=== PATIENT | male | born 1955 | race Caucasian/White ===

== ENCOUNTER → 2017-04-22 | Day surgery (SDC) | payer BC ==
[2017-04-20 16:59] LABS: BASOPHILS # (AUTO) 0.1 (0.0-0.1); BASOPHILS % 1.4 % (0.0-1.0); EOSINOPHILS # (AUTO) 0.2 (0.0-0.4); EOSINOPHILS % 2.9 % (0.0-6.0); HEMATOCRIT 46.9 % (38.2-49.6); HEMOGLOBIN 16.2 g/dL (14.0-18.0); LYMPHOCYTES # (AUTO) 1.2 (1.0-3.2); LYMPHOCYTES % 18.5 % (18.0-39.1); MEAN CORPUSCULAR HEMOGLOBIN 30.5 pg (28-32); MEAN CORPUSCULAR HGB CONC 34.5 g/dL (31-35); MEAN CORPUSCULAR VOLUME 88.2 fL (81-99); MONOCYTES # (AUTO) 0.6 (0.2-0.8); MONOCYTES % 9.4 % (4.4-11.3); NEUTROPHILS # (AUTO) 4.5 (2.1-6.9); NEUTROPHILS % 67.5 % (38.7-80.0); PLATELET COUNT 220 x10e3/uL (140-360); RED BLOOD COUNT 5.32 x10e6/uL (4.3-5.7); RED CELL DISTRIBUTION WIDTH 13.2 % (11.7-14.4)
[2017-04-20 17:14] LABS: ANION GAP 13.1 mmol/L (8-16); BLOOD UREA NITROGEN 21 mg/dL (7-26); BUN/CREATININE RATIO 20 (6-25); CALCIUM 8.9 mg/dL (8.4-10.2); CARBON DIOXIDE 24 mmol/L (22-29); CHLORIDE 110 mmol/L (98-107); CREATININE, SERUM 1.04 mg/dL (0.72-1.25); EST GLOMERULAR FILTRATION RATE > 60 ML/MIN (60-); GLUCOSE 97 mg/dL (74-118); POTASSIUM 4.1 mmol/L (3.5-5.1); SODIUM 143 mmol/L (136-145)
--- NOTE | 2017-04-20 18:52 | Diagnostic Imaging Report ---
PROCEDURE: X-RAY CHEST, TWO VIEWS COMPARISON: None. INDICATIONS: PRE OP SHOULDER FINDINGS: LUNGS: Mild eventration of the right diaphragm. No soft tissue mass or infiltrate. Vascular markings are normal. Calcification superimposed over the left fourth rib measures 5 mm. PLEURA: No effusions or pneumothorax. HEART \T\ MEDIASTINUM: Mild cardiomegaly with cardiac bypass changes. No hilar lymphadenopathy. BONES \T\ SOFT TISSUES: Median sternotomy wires are intact. No lytic lesions. CONCLUSION: No acute thoracic abnormality. Bone island or calcified granuloma in the left upper lobe as described above. Mild eventration of the right diaphragm. Dictated by: Robbie Jimenez M.D. on 04/20/2017 at 18:52 Electronically approved by: Robbie Jimenez M.D. on 04/20/2017 at 18:52
[~2017-04-22] MED LIST: ACETAMINOPHEN 1000 MG/100 ML 100 ML IV ONE; ACETAMINOPHEN 1000 MG/100 ML IV ONE; AMLODIPINE BESYL5 MG PO; ATORVASTATIN CA20 MG PO; CEFAZOLIN SOD 2 GM/D5W 50ML 50 ML IV ONE; CLOBETASOL1 EA/15 GM; CLOPIDOGREL75 MG PO; DEXAMETHASONE SOD PHOS INJ 4 MG/ML VIAL ONE; EPHEDRINE SULFATE INJ 50 MG/10 ML SYR ONE; FENTANYL CITRATE/PF 100MCG/2 ML INJ ONE; HYDROCODONE/APAP 5MG-325MG TAB ONE; KETOROLAC TROMETHAMINE 30 MG/ML VIAL ONE; LEVOTHYROXINE112 MCG PO; LEXAPRO10 MG PO; LIDOCAINE HCL 2% LOCAL INJ 5 ML SDV VIAL INJ ONE; MIDAZOLAM HCL 2 MG/2 ML VIAL ONE; NAPROXEN250 MG PO; ONDANSETRON HCL INJ 2 MG/ML VIAL ONE; PROPOFOL IV EMULSION 10 MG/ML 20 ML VIAL ONE; ROCURONIUM BROMIDE 10 MG/ML 5ML VIAL ONE; ROPIVACAINE 0.5% 5 MG/ML 30 ML SDV ONE; SEVOFLURANE INHAL SOLN 250 ML PEN BTL ONE; SPIRONOLACTONE25 MG PO; ULTRAM50 MG PO; VASCEPA
--- OUTSIDE RECORDS SUMMARY | 2017-04-22 08:54 | XMS REPORT ---
Author Author [facility] Address Unknown Phone Unavailable Care Team Providers Care Metal Machinist Name Role Phone JAILYN DEL RIO Unavailable Unavailable Problems This patient has no known problems. Allergies, Adverse Reactions, Alerts This patient has no known allergies or adverse reactions. Medications This patient has no known medications. Results Test Description Test Time Test Comments Text Results Atomic Results Result Comments CHEST 2 VIEWS [place] [address] Patient Name: YARY SHARMA MR #: [id number] : 1955 Age/Sex: 61/M Req #: [id number] Adm Physician: Ordered by: MARGUERITE JARA MD Report #: [id number] Location: OR Room/Bed: Procedure: [id number] DX/CHEST 2 VIEWS Exam Date: 04/20/17 Exam Time : 1640 REPORT STATUS: Signed PROCEDURE: X-RAY CHEST, TWO VIEWS COMPARISON: None. INDICATIONS: PRE OP SHOULDER FINDINGS: LUNGS: Mild eventration of the right diaphragm. No soft tissue mass or infiltrate. Vascular markings are normal. Calcification superimposed over the left fourth rib measures 5 mm. PLEURA: No effusions or pneumothorax. HEART T MEDIASTINUM: Mild cardiomegaly with cardiac bypass changes. No hilar lymphadenopathy. BONES T SOFT TISSUES: Median sternotomy wires are intact. No lytic lesions. CONCLUSION: No acute thoracic abnormality. Bone island or calcified granuloma in the left upper lobe as described above. Mild eventration of the right diaphragm. Dictated by: Karly Jimenez M.D. on 04/20/2017 at 18:52 Electronically approved by: Karly Jimenez M.D. on 04/20/2017 at 18:52 Dictated By: KARLY JIMENEZ MD 51 Transcribed By: GAY on 04/20/171851 COPY TO: MARGUERITE JARA MD
--- NOTE | 2017-04-23 09:44 | Operative Report ---
DATE OF PROCEDURE: April 22, 2017 PREOPERATIVE DIAGNOSES 1. Left shoulder rotator cuff tear. 2. Left shoulder acromioclavicular joint arthrosis. POSTOPERATIVE DIAGNOSES 1. Left shoulder complex and chronic rotator cuff tear. 2. Left shoulder synovitis. 3. Left shoulder acromioclavicular joint arthrosis. OPERATIONS/PROCEDURES PERFORMED 1. The patient underwent a left shoulder examination under anesthesia. 2. Left shoulder arthroscopy. 3. Left shoulder debridement of synovitis. 4. Left shoulder arthroscopic repair of a complex rotator cuff tear. 5. Left shoulder arthroscopic subacromial decompression and acromioplasty. 6. Left shoulder arthroscopic distal clavicle resection. GAS EXAMINER: Willa Young. ANESTHESIA: General endotracheal intubation anesthesia, as well as the regional block. IV FLUIDS: Per the anesthesia record. COMPLICATIONS: None. BRIEF DESCRIPTION OF THE PATIENT'S OPERATIVE PROCEDURE: Mr. Ferguson was taken to the operating room and placed in the supine position on the operating table. Following induction of general anesthesia, as well as endotracheal intubation, the patient's left shoulder was examined under anesthesia. He was found to have full passive range of motion of the shoulder joint and no otherwise gross abnormalities. There was no evidence of instability. The patient's upper extremity was prepped and draped in a standard surgical fashion. Standard posterolateral and anterior portals were created without difficulty. The scope was placed within the shoulder joint atraumatically. Examination of the glenohumeral articulation demonstrated no significant evidence of chondromalacia. There were no loose bodies in the shoulder joint. There was diffuse synovitis in the shoulder joint. A probe was placed in the shoulder, and the biceps tendon was found to be contained within the shoulder and attached firmly to the glenoid labrum. The labrum was also firmly attached to the glenoid. A shaver was placed in the shoulder joint and synovitis was debrided. Evaluation of the rotator cuff tissue demonstrated a full-thickness rotator cuff tear. A shaver was used to debride the torn fibers of the rotator cuff, as well as to debride the insertion site to a bleeding bony bed. The shoulder was deflated of its sterile normal saline. The scope was placed in the subacromial space. A lateral portal was created through an outside-in technique. Significant bursal inflammation was encountered in the subacromial space. A bursectomy was performed. The rotator cuff injury was easily identified. The patient was found to have a large retracted complex rotator cuff tear. The rotator cuff tear encompassed the supraspinatus insertion, but also created an L-shaped split through the rotator cuff. There was also delamination of the rotator cuff tear within the tendon itself. A shaver was used to further debride the insertion site to a bleeding bony bed. The shaver was also used to debride the rotator cuff injury. The rotator cuff was mobilized, and a [id number] repair was performed using FiberWire suture. A single suture anchor was then inserted into the greater tuberosity, and the suture arms from that anchor were woven through the rotator cuff tissue advancing the rotator cuff tissue into its normal insertion site. Once this was achieved, the rotator cuff was found to be reapproximated to its insertion site in its entirety. The patient had a markedly downward sloping acromion. A shaver and a bur was used to provide the patient acromioplasty. The coracoacromial ligament was resected at this time. Once an appropriate decompression was concerned, attention was turned to the AC joint. The anterior portal was placed within the subacromial space, and a shaver was used to resect a 1-cm portion of the distal clavicle. The scope was transferred to the anterior portal to confirm completion of the distal clavicle bursectomy. The shoulder was deflated of its sterile normal saline. Sterile dressings were applied. The patient was provided a shoulder immobilizer, awakened and taken to the postanesthesia care in stable condition. Willa Young acted as fleet administrative assistant for this case and was necessary for both the prepping and draping the patient, as well as positioning of the arm and the passage of suture that allowed this case to be successful. Job#: [id number]
== END | disposition home or self-care (01) ==
LOC: OR 08:52
PROVIDERS: ATTEND Specialist
DX: S46.092A Other injury of muscle(s) and tendon(s) of the rotator cuff of left shoulder, initial encounter (principal); M65.812 Other synovitis and tenosynovitis, left shoulder; M19.012 Primary osteoarthritis, left shoulder; G56.02 Carpal tunnel syndrome, left upper limb; G56.22 Lesion of ulnar nerve, left upper limb; I25.810 Atherosclerosis of coronary artery bypass graft(s) without angina pectoris; I10 Essential (primary) hypertension; R00.1 Bradycardia, unspecified; G47.33 Obstructive sleep apnea (adult) (pediatric); E78.5 Hyperlipidemia, unspecified; E03.9 Hypothyroidism, unspecified; F32.9 Major depressive disorder, single episode, unspecified; X58.XXXA Exposure to other specified factors, initial encounter; Z01.810 Encounter for preprocedural cardiovascular examination; Z01.812 Encounter for preprocedural laboratory examination; Z01.818 Encounter for other preprocedural examination; Z79.02 Long term (current) use of antithrombotics/antiplatelets; Z68.39 Body mass index [BMI] 39.0-39.9, adult; Z95.1 Presence of aortocoronary bypass graft; Z87.891 Personal history of nicotine dependence
CPT/HCPCS: 29824; 29826; 29827; 36415; 71046; 80048; 85025; 93005; J1100; J1885; J2001; J2250; J2405; J2795